=== PATIENT | female | born 2000 | race Caucasian/White ===

== ENCOUNTER 2022-11-30 07:45 | Emergency (ER) | payer OTHER, SELFPAY ==
[2022-11-30 07:51] VITALS: BP 128/97; PULSE 95; RESP 18; TEMP 36.6; O2SAT 99; BMI 39.2
--- NOTE | 2022-11-30 08:21 | CRLHL7_ITS ---
For Patients: As a result of the Century Cures Act, medical imaging exams and procedure reports are released immediately into your electronic medical record. You may view this report before your referring provider. If you have questions, please contact your health care provider. INDICATION: Right upper quadrant abdominal pain; epigastric pain. Comparison : None. TECHNIQUE: Ultrasound examination of the right upper quadrant of the abdomen. FINDINGS: Diffuse increase in echogenicity of the liver indicating severe fatty infiltration. Gallbladder is unremarkable. Nondilated common bile duct measuring 4 mm in diameter. No focal hepatic pathology. Sub optimal visualization of the pancreas secondary to increased bowel gas in the upper abdomen. The right kidney measures 12.1 x 6 x 6 cm without any obstructive uropathy or perinephric pathology. Normal echogenic pattern of the renal cortex. Renal cortex measures 2 cm in thickness. Proximal abdominal aorta measures 1.9 cm. IMPRESSION: 1. Diffuse fatty infiltration of the liver. 2. Normal ultrasound examination of the right upper quadrant of the abdomen otherwise. Dictated by Guido Gibson MD @ 11/30/2022 9:52:28 AM (Electronically Signed)
[2022-11-30] MEDS: ACETAMINOPHEN 500 MG TABLET 1000 MG PO (08:28)
--- NOTE | 2022-11-30 08:34 | ED.ABDPAIN ---
HPI - Abdominal Pain General Date Seen: 11/30/22 Chief Complaint: Abdominal Pain Stated Complaint: Abdominal pain Time Seen by Provider: 11/30/22 07:50 Source: patient and family Mode of arrival: ambulatory Limitations: no limitations History of Present Illness HPI narrative: Patient is a 22-year-old female presents here with her significant other for evaluation of epigastric pain she has had since 9:00 p.m. last night. The pain came on after she ate. Describes it in the epigastric region, with no radiation to her back neck or shoulders, or anywhere else. It is a crampy a grabbing pain that comes and goes, she was able to sleep during the night, she did try some Pepto-Bismol with lidocaine when it 1st came on, and some Tylenol/ibuprofen after this. She was able to sleep overnight, but then this morning the pain came back. She describes in her epigastric associated with some nausea but no vomiting. She has had no fevers or chills, denies any dysuria frequency vaginal discharge bleeding, or GI other symptoms. Her bowel movements have been normal, she is passing some gas. Did not take any other medications for this. History of PCOS, this post to be taking metformin but is not, sees a divorce attorney down in the [facility], her and her partner recently moved to the [facility]. No history of alcohol use, denies any drug use, but does see any, when question about says is a possibility took a test last week. No history of previous surgical endeavors on her abdomen. , patient unsure when her last menstrual period was. Does get these irregularly Related Data Previous Rx's Medication Instructions Recorded omeprazole 20 mg capsule,delayed 20 mg PO DAILY #30 caps 11/30/22 release Allergies Allergy/AdvReac Type Severity Reaction Status Date / Time No Known Drug Allergies Allergy Verified 11/30/22 07:55 Review of Systems Status of ROS Reports: 10 or more systems reviewed and unremarkable except as noted in History and below PFSH [facility] Social History Smoking Status: Never smoker Do you use any of these nicotine containing products: None How often do you have a drink containing alcohol: monthly or less How often do you have six or more drinks on one occasion: Never AUDIT-C Alcohol total score: 1 Non-prescribed substance use: marijuana (any form) service: No Exam Narrative: Exam Narrative: On examination in room 6 patient is no apparent distress, she is accompanied by her partner, speaks to me normally nontoxic pupils are equal round reactive to light, there is no scleral icterus redness, TMs are normal, oropharynx is normal, she is wearing a mask, she has some acne on her cheeks bilaterally, neck is supple, absence of meningismus, chest is good air entry bilaterally no wheezing crackles noted heart sounds are normal, her abdomen is obese and soft, she has some mild tenderness in the right upper quadrant, and a positive Coon sign, there is no epigastric tenderness surprisingly, bowel sounds are normal, no scars from previous surgery, no organomegaly, skin reveals no petechiae rashes neurologically intact moves all extremities independently and well, no edema, Const: Vital Signs, click to edit/add: Vital Signs - 24 hr 11/30/22 07:51 11/30/22 08:43 11/30/22 10:10 Temperature 97.9 F Pulse Rate [Right Pulse Oximeter] 95 86 78 Respiratory Rate 18 16 16 Blood Pressure [Ri ght Upper Arm] 128/97 H 109/77 Pulse Oximetry 99 98 97 Oxygen Delivery Me thod Room Air Room Air Room Air 11/30/22 11:00 11/30/22 12:00 Temperature Pulse Rate [Right Pulse Oximeter] 70 85 Respiratory Rate 16 16 Blood Pressure [Ri ght Upper Arm] 121/86 114/86 Pulse Oximetry 97 97 Oxygen Delivery Me thod Room Air Room Air Documenting provider has reviewed patient's vital signs: yes Course Course Hospital Course: I discussed with the patient that her ultrasound looked good there is no evidence of significant abnormality with her gallbladder, we will do a CT to further delineate this, although we will have to get a test is negative before this. They were comfortable this plan. Discussed with the patient her CT was negative, her blood tests were reassuring, I wonder if this is more either irritable bowel syndrome or possibly some reflux with some gastritis causing the issue, we will put her on a proton pump inhibitor, and get her to follow up with primary care went over signs symptoms of worsening, but today's examination was very reassuring. Vital Signs Vital signs: Initial Vital Signs Temperature 97.9 F 11/30/22 07:51 Temperature Source Temporal Artery Scan 11/30/22 07:51 Pulse Rate 95 11/30/22 07:51 Respiratory Rate 18 11/30/22 07:51 Blood Pressure 128/97 H 11/30/22 07:51 Blood Pressure Mean 107 11/30/22 07:51 Blood Pressure Position Sitting 11/30/22 07:51 Pulse Oximetry 99 11/30/22 07:51 Oxygen Delivery Method Room Air 11/30/22 07:51 Vital Signs Temperature 97.9 F 11/30/22 07:51 Pulse Rate 95 11/30/22 07:51 Respiratory Rate 18 11/30/22 07:51 Blood Pressure 128/97 H 11/30/22 07:51 Pulse Oximetry 99 11/30/22 07:51 Oxygen Delivery Method Room Air 11/30/22 07:51 Temperature 97.9 F 11/30/22 07:51 Pulse Rate 85 11/30/22 12:00 Respiratory Rate 16 11/30/22 12:00 Blood Pressure 114/86 11/30/22 12:00 Pulse Oximetry 97 11/30/22 12:00 Oxygen Delivery Method Room Air 11/30/22 12:00 MDM - Abdominal Pain MDM Narrative Medical decision making narrative: During the evaluation of this patient I considered multiple differential diagnosis including life-threatening differentials which are appendicitis, aortic aneurysm, mesenteric ischemia, bowel perforation, ectopic , volvulus and bowel obstruction, other differential diagnosis include but are not limited to inflammatory bowel disease, cholecystitis, pancreatitis, hepatitis, gastritis, GERD, diverticulitis, peptic ulcer disease, pyelonephritis/UTI, renal colic/stone, pelvic inflammatory disease, cervicitis, endometritis, intrauterine , dysfunctional uterine bleeding, ovarian cyst/torsion, spontaneous as well as other etiologies Medical Records Attestation: I reviewed the patient's medical records. Lab Data Attestation: I reviewed the patient's lab results. Labs: Lab Results 11/30/22 11/30/22 Range/Units 08:35 09:25 WBC 10.59 (4.50-11.00) K/uL RBC 5.17 (4.00-5.20) m/uL Hgb 15.2 (12.0-16.0) gm/dL Hct 45.6 (33.0-51.0) % MCV 88 (80-100) fL MCH 29 (26-34) pg MCHC 33 (32-36) gm/dL RDW Coeff of Harini 12.2 (11.5-15.5) % Plt Count 424 (140-440) K/uL Neut % (Auto) 63.4 (42.0-72.0) % Lymph % (Auto) 27.9 (20-44) % [place] % (Auto) 6.9 (0.0-11.0) % Eos % (Auto) 1.3 (0.0-7.0) % Baso % (Auto) 0.2 (0.0-3.0) % Neut # (Auto) 6.72 (1.7-7.0) K/uL Lymph # (Auto) 2.95 H (0.90-2.90) K/uL [place] # (Auto) 0.70 (0.00-0.90) K/UL Eos # (Auto) 0.14 (0.00-0.50) K/uL Baso # (Auto) 0.02 (0.00-0.30) K/uL Sodium 138 (135-149) mmol/L Potassium 4.1 (3.6-5.1) mmol/L Chloride 106 (96-114) mmol/L Carbon Dioxide 26 (20-32) mmol/L BUN 14 (5-24) mg/dL Creatinine 0.6 (0.5-1.5) mg/dL Estimated Creat Clear 144.23 Estimated GFR 131 ml/min Glucose 111 (60-115) mg/dL Calcium 9.1 (8.4-10.6) mg/dL Total Bilirubin 0.4 (0.1-1.5) mg/dL Direct Bilirubin 0.2 (0.0-0.5) mg/dL AST 39 H (12-35) U/L ALT 71 H (4-35) U/L Alkaline Phosphatase 62 (40-150) U/L Total Protein 8.1 (6.0-8.3) g/dL Albumin 4.6 (3.3-5.0) g/dL Amylase 104 H (18-89) U/L Lipase 66 (23-300) U/L HCG, Qual Negative (Negative) Urine Color Yellow (Yellow) Urine Appearance Clear (Clear) Urine pH 8.0 (5.0-8.5) Ur Specific [place] 1.020 (1.000-1.030) Urine Protein Negative (Negative) Urine Glucose (UA) Negative (Negative) Urine Ketones Negative (Negative) Urine Blood Negative (Negative) Urine Nitrite Negative (Negative) Urine Bilirubin Negative (Negative) Urine Urobilinogen 0.2 (0.2-1.0) Ur Leukocyte Esterase Negative (Negative) Urine RBC 0-2 (0-2) Urine WBC 0-2 (0-5) Ur Squamous Epith Cells Few (None-Few) Urine Bacteria Few A (None) Urine Opiates Screen Negative (Negative) Ur Oxycodone Screen Negative (Negative) Urine Methadone Screen Negative (Negative) Ur Propoxyphene Screen Negative (Negative) Ur Barbiturates Screen Negative (Negative) U Tricyclic Antidepress Negative (Negative) Ur Phencyclidine Scrn Negative (Negative) Ur Amphetamines Screen Negative (Negative) U Methamphetamines Scrn Negative (Negative) U Benzodiazepines Scrn Negative (Negative) Urine Cocaine Screen Negative (Negative) U Marijuana (THC) Screen POSITIVE A* (Negative) Ur Drug Screen Comment See Note SARS-CoV-2 (PCR) Negative SARS-CoV-2 (Negative) Influenza Type A (PCR) Negative PCR FLU A (Negative) Influenza Type B (PCR) Negative PCR FLU B (Negative) RSV (PCR) Negative PCR RSV (Negative) Imaging Data CT scan - abdomen: Attestation: I have reviewed the pertinent imaging results. Radiologist's impression: Patient: [facility] Facility:?[facility] Patient ID:?[id number] Site Patient ID:?[id number] Site :?2000 Study:?CT Abdomen/Pelvis W/ 122CC [id number]/4/2023 10:50:28 AM Ordering Physician:Tony Dexter Final Report: INDICATION: Epigastric abdominal pain. COMPARISON: Ultrasound examination of the right upper quadrant of the abdomen same date. TECHNIQUE: CT abdomen and pelvis with intravenous contrast; coronal and sagittal reformats. FINDINGS: Mild hepatomegaly with the liver measuring 24 cm in the maximum vertical dimension. Diffuse fatty infiltration of the liver. No focal hepatic or splenic pathology. No pancreatic pathology. Gallbladder is unremarkable. No adrenal pathology. No kidney stones or obstructive uropathy. No retroperitoneal lymphadenopathy. No evidence of abdominal or pelvic ascites. Normal appendix. CT study of the pelvis is unremarkable. IMPRESSION: Hepatomegaly with diffuse fatty infiltration of the liver. Please note that all CT scans at this facility use dose modulation, iterative reconstruction, and/or weight-based dosing when appropriate to reduce radiation dose to as low as reasonably achievable. Dictated by Guido Gibson MD @ 11/30/2022 11:45:06 AM (Electronic Signature) Patient: [facility] Facility:?[facility] Patient ID:?[id number] Site Patient ID:?[id number]. Site :?2000 Study:?US Abdomen RUQ-11/30/2022 9:36:17 AM Ordering Physician:Tony Dexter Final Report: INDICATION: Right upper quadrant abdominal pain; epigastric pain. Comparison : None. TECHNIQUE: Ultrasound examination of the right upper quadrant of the abdomen. FINDINGS: Diffuse increase in echogenicity of the liver indicating severe fatty infiltration. Gallbladder is unremarkable. Nondilated common bile duct measuring 4 mm in diameter. No focal hepatic pathology. Sub optimal visualization of the pancreas secondary to increased bowel gas in the upper abdomen. The right kidney measures 12.1 x 6 x 6 cm without any obstructive uropathy or perinephric pathology. Normal echogenic pattern of the renal cortex. Renal cortex measures 2 cm in thickness. Proximal abdominal aorta measures 1.9 cm. IMPRESSION: 1. Diffuse fatty infiltration of the liver. 2. Normal ultrasound examination of the right upper quadrant of the abdomen otherwise. Dictated by Guido Gibson MD @ 11/30/2022 9:52:28 AM (Electronic Signature) Discharge Plan Discharge Clinical Impression: Abdominal pain Patient Disposition: Home w/ Parent or Adult Condition: Stable Instructions: Abdominal Pain (ED) Additional Instructions: Patient doing well I reviewed with her her imaging studies, along the lab test, I think going home and using some omeprazole 20 mg a day, for the next month would be important, and then follow up with primary care, returning here if worsening signs and symptoms. Activity Level: No Restrictions Discharge Diet: Regular Prescriptions: New omeprazole 20 mg capsule,delayed release(DR/EC) 20 mg PO DAILY Qty: 30 2RF Follow Up/Referrals: Kody Price MD [Staff Physician] - Stand Alone Forms: [email or web address] Info Instructions
[2022-11-30] MEDS: ONDANSETRON 2 MG/ML inj 4 MG IVP (08:35)
[2022-11-30] MEDS: 0.9 % SODIUM CHLORIDE 1000 ml 1,000 ML IV (08:35)
[2022-11-30 08:43] VITALS: PULSE 86; RESP 16; O2SAT 98
[2022-11-30 08:45] LABS: Basophils Absolute Auto 0.02 K/uL (0.00-0.30); Basophils Percent Auto 0.2 % (0.0-3.0); Eosinophils Absolute Auto 0.14 K/uL (0.00-0.50); Eosinophils Percent Auto 1.3 % (0.0-7.0); Hematocrit 45.6 % (33.0-51.0); Hemoglobin* 15.2 gm/dL (12.0-16.0); Immature Granulocytes Abs Auto 0.03 K/uL (0.00-0.30); Immature Granulocytes Pct Auto 0.3 %; Lymphocytes Absolute Auto 2.95 K/uL (0.90-2.90); Lymphocytes Percent Auto 27.9 % (20-44); Mean Corpuscular HGB Conc 33 gm/dL (32-36); Mean Corpuscular Hemoglobin 29 pg (26-34); Mean Corpuscular Volume 88 fL (80-100); Monocytes Percent Auto 6.9 % (0.0-11.0); Neutrophils Absolute Auto 6.72 K/uL (1.7-7.0); Neutrophils Percent Auto 63.4 % (42.0-72.0); Platelet Count* 424 K/uL (140-440); RDW Coefficient of Variation % 12.2 % (11.5-15.5); Red Blood Count 5.17 m/uL (4.00-5.20); White Blood Count* 10.59 K/uL (4.50-11.00)
[2022-11-30 08:58] LABS: Slide Review Reflex No
[2022-11-30 09:01] LABS: Albumin* 4.6 g/dL (3.3-5.0); Chloride* 106 mmol/L (96-114)
[2022-11-30 09:02] LABS: Potassium* 4.1 mmol/L (3.6-5.1); Sodium* 138 mmol/L (135-149)
[2022-11-30 09:04] LABS: Amylase* 104 U/L (18-89); Aspartate Amino Transferase* 39 U/L (12-35); Bilirubin Direct* 0.2 mg/dL (0.0-0.5); Bilirubin Total* 0.4 mg/dL (0.1-1.5); Blood Urea Nitrogen* 14 mg/dL (5-24); Carbon Dioxide* 26 mmol/L (20-32); Creatinine* 0.6 mg/dL (0.5-1.5); Est. Creatinine Clearance* 144.23; Estimated Glomerular Filt Rate 131 ml/min; Total Protein* 8.1 g/dL (6.0-8.3)
[2022-11-30 09:05] LABS: Alanine Aminotransferase* 71 U/L (4-35); Alkaline Phosphatase* 62 U/L (40-150); Calcium* 9.1 mg/dL (8.4-10.6); Glucose* 111 mg/dL (60-115); Lipase* 66 U/L (23-300)
[2022-11-30 09:30] LABS: PCR FLU A Negative PCR FLU A (Negative); PCR FLU B Negative PCR FLU B (Negative); PCR RSV Negative PCR RSV (Negative)
[2022-11-30 09:31] LABS: SARS PCR* Negative SARS-CoV-2 (Negative)
[2022-11-30 09:43] LABS: Appearance Urine Clear (Clear); Bilirubin Urine Negative (Negative); Blood Urine Negative (Negative); Color Urine Yellow (Yellow); Glucose Urine Negative (Negative); Ketones Urine Negative (Negative); Leukocyte Esterase Urine Negative (Negative); Nitrite Urine Negative (Negative); Protein Urine Negative (Negative); Urobilinogen Urine 0.2 (0.2-1.0)
[2022-11-30 09:47] LABS: HCG Qualitative* Negative (Negative)
[2022-11-30 09:54] LABS: Amphetamine Screen Urine Negative (Negative); Barbiturate Screen Urine Negative (Negative); Benzodiazepines Screen Urine Negative (Negative); Cocaine Screen Urine Negative (Negative); Methadone Screen Urine Negative (Negative); Methamphetamines Screen Urine Negative (Negative); Opiate Screen Urine Negative (Negative); Oxycodone Screen Urine Negative (Negative); Phencyclidine Screen Urine Negative (Negative); Tricyclic Antidepressant Urine Negative (Negative)
[2022-11-30 09:57] LABS: Bacteria Urine Few; RBC Urine 0-2 (0-2); Squamous Epithelial Cell Urine Few (None-Few); WBC Urine 0-2 (0-5)
[2022-11-30 10:02] LABS: Cannabinoid Screen Urine POSITIVE (Negative)
[2022-11-30 10:10] VITALS: BP 109/77; PULSE 78; RESP 16; O2SAT 97
--- NOTE | 2022-11-30 10:17 | CRLHL7_ITS ---
For Patients: As a result of the Century Cures Act, medical imaging exams and procedure reports are released immediately into your electronic medical record. You may view this report before your referring provider. If you have questions, please contact your health care provider. INDICATION: Epigastric abdominal pain. COMPARISON: Ultrasound examination of the right upper quadrant of the abdomen same date. TECHNIQUE: CT abdomen and pelvis with intravenous contrast; coronal and sagittal reformats. FINDINGS: Mild hepatomegaly with the liver measuring 24 cm in the maximum vertical dimension. Diffuse fatty infiltration of the liver. No focal hepatic or splenic pathology. No pancreatic pathology. Gallbladder is unremarkable. No adrenal pathology. No kidney stones or obstructive uropathy. No retroperitoneal lymphadenopathy. No evidence of abdominal or pelvic ascites. Normal appendix. CT study of the pelvis is unremarkable. IMPRESSION: Hepatomegaly with diffuse fatty infiltration of the liver. Please note that all CT scans at this facility use dose modulation, iterative reconstruction, and/or weight-based dosing when appropriate to reduce radiation dose to as low as reasonably achievable. Dictated by Guido Gibson MD @ 11/30/2022 11:45:06 AM (Electronically Signed)
[2022-11-30] MEDS: KETOROLAC 30 MG/ML inj IVP (10:47)
[2022-11-30 11:00] VITALS: BP 121/86; PULSE 70; RESP 16; O2SAT 97
[2022-11-30 12:00] VITALS: BP 114/86; PULSE 85; RESP 16; O2SAT 97
== END 2022-11-30 12:16 | disposition home or self-care (01) ==
PROVIDERS: Emergency Provider Family Medicine
DX: R10.11 Right upper quadrant pain (principal)
CPT/HCPCS: 36415; 74177; 76705; 80048; 80076; 80306; 81001; 82150; 83690; 84703; 85025; 87086; 87631; 96374; 96375; 99283; 99284; A9270; J1885; J2405; J7030; Q9967